=== PATIENT | male | born 1985 | race Asian ===

== ENCOUNTER 2016-10-02 13:01 | Inpatient (IN) | payer MEDICAID ==
[~2016-10-02] VITALS: Ht 160 cm; Wt 48.5 kg
[~2016-10-02 13:01] MED LIST: FLUO-191 PO; Fluoxetine Hcl PO; OLAN10TA3 PO; OLAN5TAB2 PO
[2016-10-02 16:07] VITALS: BP 99/60
[2016-10-02] MEDS ORDERED: LORazepam 2 MG TABLET PO PRN (16:15)
[2016-10-02] MEDS ORDERED: ZOLPIDEM TARTRATE 5 MG TABLET PO PRN (16:15)
[2016-10-02] MEDS ORDERED: HALOPERIDOL 5 MG TABLET PO PRN (16:15)
[2016-10-02 17:13] VITALS: BP 101/64
[2016-10-02] MEDS: HALOPERIDOL 5 MG TABLET PO SCH (18:44)
[2016-10-02] MEDS: BENZTROPINE MESYLATE 0.5 MG TABLET PO SCH (18:44)
[2016-10-03 06:31] VITALS: BP 110/62
[2016-10-03 08:15] LABS: BASOPHILS # (AUTO) 0.08 K/uL (0.00-0.20); BASOPHILS % (AUTO) 1.4 % (0.0-2.0); EOSINOPHILS # (AUTO) 0.69 K/uL (0.00-0.70); EOSINOPHILS % (AUTO) 11.78 % (1.0-6.0); HEMATOCRIT 42.1 % (41-53); HEMOGLOBIN 13.9 g/dL (13.5-17.5); LYMPHOCYTES # (AUTO) 2.2 K/uL (1.0-4.8); MEAN CORPUSCULAR HEMOGLOBIN 31.4 pg (26.0-34.0); MEAN CORPUSCULAR VOLUME 95 fL (80-100); MONOCYTES # (AUTO) 0.4 K/uL (0.1-1.0); NEUTROPHILS # (AUTO) 2.5 K/uL (1.8-7.7); NEUTROPHILS % (AUTO) 42.9 % (40.0-70.0); PLATELET COUNT (AUTO) 239 K/uL (150-450); RED BLOOD CELL COUNT(AUTO) 4.42 MIL/uL (4.50-5.90); RED CELL DISTRIBUTION WIDTH 13.5 % (11.5-14.5); WHITE BLOOD COUNT (AUTO) 5.9 K/uL (4.5-11.0)
[2016-10-03] MEDS: BENZTROPINE MESYLATE 0.5 MG TABLET PO SCH ×2 (08:17→16:07)
[2016-10-03] MEDS: HALOPERIDOL 5 MG TABLET PO SCH ×2 (08:17→16:06)
[2016-10-03 08:24] VITALS: BP 109/63
[2016-10-03 08:36] LABS: ALANINE AMINOTRANSFERASE 28 U/L (12-78); ALBUMIN 3.6 g/dL (3.4-5.0); ANION GAP 5 mmol/L (8-16); ASPARTATE AMINOTRANSFERASE 13 U/L (15-37); BILIRUBIN,TOTAL 0.7 mg/dL (0.1-1.0); CALCIUM, TOTAL 8.7 mg/dL (8.8-10.5); CARBON DIOXIDE 31 mmol/L (22-29); CHLORIDE 105 mmol/L (98-107); CREATININE 0.88 mg/dL (0.60-1.30); GLOMERULAR FILTR. RATE CALC > 60 mL/min (>60); POTASSIUM 3.6 mmol/L (3.5-5.1); SODIUM SERUM 141 mmol/L (136-145); TOTAL PROTEIN, SERUM 6.7 g/dL (6.4-8.2); UREA NITROGEN, BLOOD 14 mg/dL (7-18)
[2016-10-03 16:19] VITALS: BP 107/60
[2016-10-03] MEDS ORDERED: ACETAMINOPHEN 325 MG TABLET PO PRN (21:15)
[2016-10-03] MEDS ORDERED: IBUPROFEN 400 MG TABLET PO PRN (21:15)
[2016-10-04] VITALS (8 sets, daily range): BP systolic 84–125; BP diastolic 53–62
[2016-10-04 09:21] LABS: CHOL/HDL RATIO 3.1 (4.2-7.3); THYROID STIMULATING HORMONE 0.55 uIU/mL (0.36-3.74)
[2016-10-04] MEDS: BENZTROPINE MESYLATE 0.5 MG TABLET PO SCH ×2 (09:52→16:27)
[2016-10-04] MEDS: HALOPERIDOL 5 MG TABLET PO SCH ×2 (09:53→16:27)
[2016-10-05] VITALS (12 sets, daily range): BP systolic 95–112; BP diastolic 55–68
[2016-10-05] MEDS: BENZTROPINE MESYLATE 0.5 MG TABLET PO SCH ×2 (09:08→16:37)
[2016-10-05] MEDS: HALOPERIDOL 5 MG TABLET PO SCH ×2 (09:08→16:38)
[2016-10-06] VITALS (9 sets, daily range): BP systolic 98–121; BP diastolic 56–68
[2016-10-06] MEDS: BENZTROPINE MESYLATE 0.5 MG TABLET PO SCH ×2 (09:03→16:12)
[2016-10-06] MEDS: HALOPERIDOL 5 MG TABLET PO SCH ×2 (09:03→16:12)
[2016-10-07] VITALS (12 sets, daily range): BP systolic 90–108; BP diastolic 54–69
[2016-10-07] MEDS: BENZTROPINE MESYLATE 0.5 MG TABLET PO SCH ×2 (08:50→16:44)
[2016-10-07] MEDS: HALOPERIDOL 5 MG TABLET PO SCH ×2 (08:50→16:45)
[2016-10-08] VITALS (12 sets, daily range): BP systolic 88–105; BP diastolic 50–65
[2016-10-08] MEDS: BENZTROPINE MESYLATE 0.5 MG TABLET PO SCH ×2 (08:14→16:10)
[2016-10-08] MEDS: HALOPERIDOL 5 MG TABLET PO SCH ×2 (08:15→16:10)
[2016-10-09] VITALS (7 sets, daily range): BP systolic 90–94; BP diastolic 59–65
[2016-10-09] MEDS: HALOPERIDOL 5 MG TABLET PO SCH (08:27)
[2016-10-09] MEDS: BENZTROPINE MESYLATE 0.5 MG TABLET PO SCH (08:27)
[2016-10-09] MEDS ORDERED: BENZ0.5T6 PO (12:28)
[2016-10-09] MEDS ORDERED: HALO5 PO (12:28)
== END 2016-10-09 15:10 | disposition home or self-care (01) | DRG 750 ==
LOC: B3A 16:19 → EDSTATUS 16:30 → B2S 10-08 21:40
PROVIDERS: ADMIT Psychiatry & Neurology Psychiatry; ATTEND Psychiatry & Neurology Psychiatry
DX: F25.0 Schizoaffective disorder, bipolar type (principal); I95.9 Hypotension, unspecified; R45.850 Homicidal ideations; F15.10 Other stimulant abuse, uncomplicated; F17.200 Nicotine dependence, unspecified, uncomplicated; Z71.51 Drug abuse counseling and surveillance of drug abuser
CPT/HCPCS: 83036; 84443; 87081

== ENCOUNTER 2017-06-02 12:13 | Inpatient (IN) | payer MEDICAID ==
[~2017-06-02] VITALS: Ht 160 cm; Wt 48.5 kg
[~2017-06-02 12:13] MED LIST changes: +BENZ0.5T6 PO; -FLUO-191 PO; -Fluoxetine Hcl PO; +HALO5 PO; -OLAN10TA3 PO; -OLAN5TAB2 PO
[2017-06-02 13:54] VITALS: BP 94/58
[2017-06-02] MEDS ORDERED: HALOPERIDOL 5 MG TABLET PO PRN (14:00)
[2017-06-02] MEDS ORDERED: ZOLPIDEM TARTRATE 10 MG TABLET PO PRN (14:00)
[2017-06-02 14:08] VITALS: BP 108/74
[2017-06-02] MEDS ORDERED: INFLUENZA VIRUS VACCINE QVS 2017-18 (3YR+)/PF 60 MCG/0.5 ML SYRINGE IM ONE (15:00)
[2017-06-02 16:00] VITALS: BP 110/66
[2017-06-02] MEDS: HALOPERIDOL 5 MG TABLET PO SCH (17:18)
[2017-06-02] MEDS: BENZTROPINE MESYLATE 0.5 MG TABLET PO SCH (17:18)
[2017-06-02] MEDS ORDERED: IBUPROFEN 400 MG TABLET PO PRN (20:45)
[2017-06-02] MEDS ORDERED: ACETAMINOPHEN 325 MG TABLET PO PRN (20:45)
[2017-06-03 06:32] VITALS: BP 101/61
[2017-06-03] MEDS: BENZTROPINE MESYLATE 0.5 MG TABLET PO SCH ×2 (09:21→16:49)
[2017-06-03] MEDS: HALOPERIDOL 5 MG TABLET PO SCH ×2 (09:21→16:49)
[2017-06-03] MEDS: LORazepam 2 MG TABLET PO PRN ×2 (09:21→16:49)
[2017-06-03 09:43] VITALS: BP 121/69
[2017-06-03 16:00] VITALS: BP 106/67
[2017-06-04 06:54] VITALS: BP 109/61
[2017-06-04 07:36] LABS: BASOPHILS # (AUTO) 0.07 K/uL (0.00-0.20); BASOPHILS % (AUTO) 0.7 % (0.0-2.0); EOSINOPHILS # (AUTO) 0.65 K/uL (0.00-0.70); HEMATOCRIT 40.6 % (41-53); HEMOGLOBIN 13.7 g/dL (13.5-17.5); LYMPHOCYTES # (AUTO) 1.3 K/uL (1.0-4.8); LYMPHOCYTES % (AUTO) 14.8 % (22.0-44.0); MEAN CORPUSCULAR HEMOGLOBIN 31.3 pg (26.0-34.0); MEAN CORPUSCULAR HGB CONC 33.7 G/dL (31.0-37.0); MEAN CORPUSCULAR VOLUME 93 fL (80-100); MONOCYTES # (AUTO) 0.5 K/uL (0.1-1.0); MONOCYTES % (AUTO) 5.1 % (2.0-9.0); NEUTROPHILS # (AUTO) 6.4 K/uL (1.8-7.7); NEUTROPHILS % (AUTO) 72.1 % (40.0-70.0); PLATELET COUNT (AUTO) 218 K/uL (150-450); RED BLOOD CELL COUNT(AUTO) 4.38 MIL/uL (4.50-5.90); RED CELL DISTRIBUTION WIDTH 12.8 % (11.5-14.5)
[2017-06-04 08:09] LABS: ALANINE AMINOTRANSFERASE 19 U/L (12-78); ALBUMIN 3.5 g/dL (3.4-5.0); ALKALINE PHOSPHATASE 63 U/L (46-116); ANION GAP 5 mmol/L (8-16); ASPARTATE AMINOTRANSFERASE 12 U/L (15-37); BILIRUBIN,TOTAL 0.5 mg/dL (0.1-1.0); CALCIUM, TOTAL 8.7 mg/dL (8.8-10.5); CARBON DIOXIDE 31 mmol/L (22-29); CHLORIDE 102 mmol/L (98-107); CHOL/HDL RATIO 3.4 (4.2-7.3); CHOLESTEROL 181 mg/dL (131-200); CREATININE 0.94 mg/dL (0.60-1.30); FREE T4 (FREE THYROXINE) 0.85 ng/dL (0.76-1.46); GLOMERULAR FILTR. RATE CALC > 60 mL/min (>60); GLUCOSE,RANDOM 83 mg/dL (70-110); HDL CHOLESTEROL 54 mg/dL (40-60); LDL CHOL (CALC.) 116 mg/dL (0-130); POTASSIUM 4.3 mmol/L (3.5-5.1); SODIUM SERUM 138 mmol/L (136-145); THYROID STIMULATING HORMONE 0.04 uIU/mL (0.36-3.74); TOTAL PROTEIN, SERUM 6.7 g/dL (6.4-8.2); TRIGLYCERIDES 53 mg/dL (15-150); UREA NITROGEN, BLOOD 15 mg/dL (7-18)
[2017-06-04] MEDS: HALOPERIDOL 5 MG TABLET PO SCH ×2 (08:24→16:20)
[2017-06-04] MEDS: BENZTROPINE MESYLATE 0.5 MG TABLET PO SCH ×2 (08:24→16:20)
[2017-06-04] MEDS: LORazepam 2 MG TABLET PO PRN ×2 (08:25→16:20)
[2017-06-04 09:02] VITALS: BP 122/69
[2017-06-04 10:11] LABS: HEMOGLOBIN A1C 4.7 % (4.5-6.2)
[2017-06-04 16:30] VITALS: BP 106/66
[2017-06-05 03:12] VITALS: BP 115/71
[2017-06-05 08:11] VITALS: BP 100/55
[2017-06-05] MEDS: BENZTROPINE MESYLATE 0.5 MG TABLET PO SCH ×2 (09:17→16:48)
[2017-06-05] MEDS: HALOPERIDOL 5 MG TABLET PO SCH ×2 (09:18→16:48)
[2017-06-05] MEDS: LORazepam 2 MG TABLET PO PRN ×2 (09:18→16:48)
[2017-06-05 16:00] VITALS: BP 104/67
[2017-06-06 06:27] VITALS: BP 109/65
[2017-06-06 08:18] VITALS: BP 110/63
[2017-06-06] MEDS: LORazepam 2 MG TABLET PO PRN ×2 (08:47→16:39)
[2017-06-06] MEDS: HALOPERIDOL 5 MG TABLET PO SCH ×2 (08:47→16:39)
[2017-06-06] MEDS: BENZTROPINE MESYLATE 0.5 MG TABLET PO SCH ×2 (08:47→16:39)
[2017-06-06 16:00] VITALS: BP 112/65
[2017-06-07 06:13] VITALS: BP 108/60
[2017-06-07 08:16] VITALS: BP 110/65
[2017-06-07] MEDS: LORazepam 2 MG TABLET PO PRN (08:42)
[2017-06-07] MEDS: HALOPERIDOL 5 MG TABLET PO SCH (08:42)
[2017-06-07] MEDS: BENZTROPINE MESYLATE 0.5 MG TABLET PO SCH (08:42)
== END 2017-06-07 14:54 | disposition home or self-care (01) | DRG 750 ==
LOC: B3A 14:03
PROVIDERS: ADMIT Psychiatry & Neurology Psychiatry; ATTEND Psychiatry & Neurology Psychiatry
PROC: 3E0234Z Introduction of Serum, Toxoid and Vaccine into Muscle, Percutaneous Approach (ICD-10-PCS; principal; 2017-06-03)
DX: F20.9 Schizophrenia, unspecified (principal); F15.20 Other stimulant dependence, uncomplicated; F32.9 Major depressive disorder, single episode, unspecified; F41.9 Anxiety disorder, unspecified; Z23 Encounter for immunization
CPT/HCPCS: 83036; 84439; 84443; 90471